=== PATIENT | female | born 1965 | race Caucasian/White ===

== ENCOUNTER 2023-05-09 21:19 | Observation (INO) ==
[2023-05-09 21:27] VITALS: TEMP 97.9
[2023-05-09] MEDS ORDERED: ACETAMINOPHEN 1,000 MG/100 ML VIAL IV STA (21:46)
[2023-05-09] MEDS ORDERED: SODIUM CHLORIDE 0.9% 1,000 ML IV ONE (21:46)
[2023-05-09] MEDS ORDERED: OPTIRAY 320 125ml IV ONE (21:54)
--- NOTE | 2023-05-09 21:55 | Emergency Department Note ---
Impression & Plan Aphasia, Hypertension, Headache, Rhinovirus ED Provider Note NAME: MIGDALIA DANGELO AGE: 57 SEX: F ARRIVES VIA: Walk-In INFORMANT: Patient ED PROVIDER(S): Hesham Napoles MD CHIEF COMPLAINT: Stroke symptoms, aphasia PLAN: Disposition: Admit MEDICAL DECISION MAKING: The patient is a pleasant 57-year-old woman with a past medical history of remote migraines which she reports resolved after starting blood pressure medicine, hypertension, hyperlipidemia, iron deficiency anemia who presents to the emergency department via walk-in accompanied by family with concern for problems with speech where she was saying the incorrect word without awareness of this which they noticed around 8 PM tonight. They report that she asked her son to turn off the computer but she said "turn off the [something unrelated]" and then was saying additional things that did not make sense. The patient reports she was not aware of the wrong words coming out. They report they last thought she was speaking normally at 1830 this evening when they were eating dinner. She is not on anticoagulation. She reports a dull headache throughout her entire head in the setting of having upper respiratory illness which the entire family had over the past couple of weeks but she has continued to have weakness, fatigue and headache. 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 On my evaluation the patient is no acute distress, afebrile blood pressure 130s/100s and heart in the 90s and vital signs otherwise stable. She appears clinically dry. On initial assessment she has no overt focal neurologic deficits and she is speaking fluently and moving all extremities equally. EKG without overt acute ischemia. Given the patient's symptoms which may have had a degree of waxing and waning and was within the extended TNK window stroke alert was activated. Case was discussed with [facility] telestroke neurology, Dr. Denney, who evaluated the patient he had the telestroke terminal/monitor following the patient's return from CT. CT of the head and CT of the head and neck were performed and did not show overt ICH or ischemic areas nor severe narrowing or occlusion of large vessel and subsequently were confirmed on final radiology report. WBC, H/H and platelets within normal limits. Chemistry without metabolic acidosis. Potassium 3.3 and electrolytes otherwise without significant abnormality. LFTs unremarkable. High-sensitivity troponin is undetectable. Respiratory viral panel/[employer] was positive for enterovirus/rhinovirus which likely reflects the patient's viral illness which was described by family and had gone through the household. Appreciate [facility] telestroke [place]. Denney's consultation and recommendations. Given the patient's symptoms had resolved and NIH score is 0 at this time no indication for TNK at this time. Agrees that symptoms may be related to TIA and recommends admission for further TIA workup including echo and MRI. Recommends initiating daily low-dose aspirin at this time. Given the patient has a history of question allergy/intolerance to aspirin where she reports nausea recommends deferring aspirin load at this time. Recommends MRI and permissive hypertension for now with goal BP less than 180/100. Additionally recommend atorvastatin 80 mg and obtain fasting lipid panel and A1c. Recommends echo with bubble study and consideration of ZIO heart monitor on discharge. Continue serial neurologic checks. Recommend local neurology follow-up. She will be available for any inpatient team questions or concerns. Of note, patient's blood pressure did demonstrate some trending improvement following IV hydration and IV APAP. Low-dose aspirin ordered per telestroke recommendations. Case was discussed with Dr. Lau, [facility] hospitalist, who evaluated the patient for admission. Further management per admitting team. Triage Nursing notes reviewed and agree them. Prior/external medical records reviewed Vital Signs: reviewed Differential diagnosis: Infection, dehydration, metabolic abnormality, hypo/hyperglycemia, electrolyte disturbance, anemia, hypoxia, cardiac sources, intracerebral event, toxicologic, neurologic, as well as other pathologies. ER treatment provided: See below. Diagnostics interpreted by me: ECG: Normal sinus rhythm, 93 bpm, no ectopy, no overt ST elevation or depression, QTc 417, QRS 70 Cardiac Monitoring: An order for continuous cardiac monitoring was placed and demonstrated Normal sinus rhythm, 93 bpm, no ectopy, Laboratory studies: See below Imaging studies: See below Consultation(s): Dr. Denney, [facility] telestroke neurology. Dr. [facility] hospital[facility]. HPI: The patient is a pleasant 57-year-old woman with a past medical history of remote migraines which she reports resolved after starting blood pressure medicine, hypertension, hyperlipidemia, iron deficiency anemia who presents to the emergency department via walk-in accompanied by family with concern for problems with speech where she was saying the incorrect word without awareness of this which they noticed around 8 PM tonight. They report that she asked her son to turn off the computer but she said "turn off the [something unrelated]" and then was saying additional things that did not make sense. The patient reports she was not aware of the wrong words coming out. They report they last thought she was speaking normally at 1830 this evening when they were eating dinner. She is not on anticoagulation. She reports a dull headache throughout her entire head in the setting of having upper respiratory illness which the entire family had over the past couple of weeks but she has continued to have weakness, fatigue and headache. 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 ROS: See above HPI for pertinent positives & negatives. A total of 10 systems reviewed and were otherwise negative. VITALS:See Below PHYSICAL EXAMINATION: GENERAL: Awake, alert, fatigued-appearing, in no distress, BMI 28.9. HENT: Normocephalic, atraumatic. Oropharynx with dry mucous membranes and otherwise unremarkable. EYES: Normal conjunctiva. Sclera non-icteric. EOMI. No nystamgus. PEARRL. NECK: Supple. No nuchal rigidity. FROM. No JVD. RESPIRATORY: Clear to auscultation. CARDIAC: Regular rate, normal rhythm. Extremities warm and well perfused. Pulses equal. ABDOMEN: Soft, non-distended. No tenderness to palpation. No rebound or guarding. No masses. RECTAL: Deferred. MUSCULOSKELETAL: Chest examination reveals no tenderness. The back is symmetrical on inspection without obvious abnormality. There is no CVA tenderness to palpation. No joint edema. LOWER EXTREMITIES: Calves are equal size bilaterally and non-tender. No edema. No discoloration. NEURO: No overt focal sensory or motor deficits noted. CNII-XII grossly intact. 5/5 strength and SILT x 4 extremities. Cerebellar function intact including [id number], alternating palms, [id number]. SKIN: No rash or jaundice noted. Hesham Napoles MD Past Med/Surg History Medical History Iron deficiency anemia Hypertension Dyslipidemia Surgical History S/P section x2 S/P appendectomy Family History Mother Breast cancer Father Colorectal cancer Prostate cancer Other Chronic liver disease Heart disease Hypertension Denies family history of Ovarian cancer Myocardial infarction Social History Smoking Status: Former smoker Second Hand Exposure: No; Do You Dip or Chew Tobacco: No; Hx Alcohol Use: No Hx Substance Use: No Preferred Language: [place] Communication Ability: Effective Visual Impairment: No Limitations Hearing Ability: Normal Booking Manager Required: No marital status: Current Living Situation: Spouse current occupational status: employed Feels Safe at Home: Yes Childhood Exposure to Second-Hand Smoke: No Dental Care, Regularly: Yes Seatbelt Use: always Sunscreen Use: Yes Assistive Devices: Glasses Allergies Allergies Allergy/AdvReac Type Severity Reaction Status Date / Time aspirin AdvReac Mild Nausea Verified 05/09/23 22:15 Home Meds Previous Rx's Medication Instructions Recorded amlodipine 5 mg tablet 5 mg PO DAILY #90 tabs 07/22/22 irbesartan 300 mg tablet 300 mg PO DAILY #90 tabs 08/02/22 polysaccharide iron complex 150 mg 300 mg (2 x 150 mg iron) PO DAILY 08/05/22 iron capsule (Ferrex) #180 caps Results & Data (ED) Vital Signs Vital Signs - 24 hr 05/09/23 21:21 05/09/23 21:21 05/09/23 21:23 Temperature 36.6 C Temperature Source Temporal Artery Scan Pulse Rate 104 H Pulse Rate [Apical] Pulse Rate from SpO2 Sensor Pulse Rhythm Regular Pulse Rhythm [Apical] Pulse Strength Normal Pulse Strength [Apical] Respiratory Rate 17 Respiratory Effort / Characteristics Non-Labored Non-Labored Spontaneous Respiratory Depth Normal Normal Respiratory Pattern Regular Blood Pressure 134/102 H Blood Pressure [Right Arm] Blood Pressure Mean 112 Blood Pressure Mean [Right Arm] Blood Pressure Position Sitting Blood Pressure Position [Right Arm] Pulse Oximetry 98 Oxygen Delivery Method Room Air Room Air Sepsis Recent Fever Within 48 Hours No Sepsis New/Unexplained Change in Mental Status N/A Sepsis Action Taken by Nursing No Action Required 05/09/23 21:38 05/09/23 21:38 05/09/23 21:45 Temperature Temperature Source Pulse Rate 94 H 96 H 90 Pulse Rate [Apical] Pulse Rate from SpO2 Sensor 96 H Pulse Rhythm Pulse Rhythm [Apical] Pulse Strength Pulse Strength [Apical] Respiratory Rate 12 18 Respiratory Effort / Characteristics Respiratory Depth Respiratory Pattern Blood Pressure Blood Pressure [Right Arm] Blood Pressure Mean Blood Pressure Mean [Right Arm] Blood Pressure Position Blood Pressure Position [Right Arm] Pulse Oximetry 98 Oxygen Delivery Method Sepsis Recent Fever Within 48 Hours Sepsis New/Unexplained Change in Mental Status Sepsis Action Taken by Nursing 05/09/23 22:03 05/09/23 22:15 05/09/23 22:18 Temperature Temperature Source Pulse Rate 97 H 92 H 89 Pulse Rate [Apical] Pulse Rate from SpO2 Sensor 97 H Pulse Rhythm Pulse Rhythm [Apical] Pulse Strength Pulse Strength [Apical] Respiratory Rate 17 22 15 Respiratory Effort / Characteristics Respiratory Depth Respiratory Pattern Blood Pressure 142/88 H 142/93 H Blood Pressure [Right Arm] Blood Pressure Mean 106 109 Blood Pressure Mean [Right Arm] Blood Pressure Position Blood Pressure Position [Right Arm] Pulse Oximetry 97 100 Oxygen Delivery Method Room Air Sepsis Recent Fever Within 48 Hours Sepsis New/Unexplained Change in Mental Status Sepsis Action Taken by Nursing 05/09/23 22:30 05/09/23 22:45 05/09/23 22:45 Temperature Temperature Source Pulse Rate 85 80 Pulse Rate [Apical] Pulse Rate from SpO2 Sensor 85 80 Pulse Rhythm Pulse Rhythm [Apical] Pulse Strength Pulse Strength [Apical] Respiratory Rate 15 14 Respiratory Effort / Characteristics Respiratory Depth Respiratory Pattern Blood Pressure 137/86 131/87 Blood Pressure [Right Arm] Blood Pressure Mean 103 96 Blood Pressure Mean [Right Arm] Blood Pressure Position Blood Pressure Position [Right Arm] Pulse Oximetry 98 99 Oxygen Delivery Method Sepsis Recent Fever Within 48 Hours Sepsis New/Unexplained Change in Mental Status Sepsis Action Taken by Nursing 05/09/23 23:36 Temperature Temperature Source Pulse Rate Pulse Rate [Apical] 76 Pulse Rate from SpO2 Sensor Pulse Rhythm Pulse Rhythm [Apical] Regular Pulse Strength Pulse Strength [Apical] Normal Respiratory Rate 16 Respiratory Effort / Characteristics Non-Labored Spontaneous Respiratory Depth Normal Respiratory Pattern Regular Blood Pressure Blood Pressure [Right Arm] 151/100 H Blood Pressure Mean Blood Pressure Mean [Right Arm] 117 Blood Pressure Position Blood Pressure Position [Right Arm] Lying Pulse Oximetry 99 Oxygen Delivery Method Room Air Sepsis Recent Fever Within 48 Hours Sepsis New/Unexplained Change in Mental Status Sepsis Action Taken by Nursing Laboratory Data Attestation: I reviewed the patient's lab results. 05/09/23 21:50 05/09/23 21:50 Lab Results 05/09/23 05/09/23 05/09/23 Range/Units 21:43 21:50 22:22 WBC 8.39 (4.8-10.8) K/ul RBC 5.37 (4.20-5.40) M/uL Hgb 15.4 (12.0-16.0) g/dl Hct 45.8 (37.0-47.0) % MCV 85.3 (80.0-100.0) fL MCH 28.7 (25.0-34.0) pg MCHC 33.6 (32.0-36.0) g/dL RDW Std Deviation 38.1 (36.4-46.3) fL RDW Coeff of Keith 12.3 (11.5-14.5) % Plt Count 342 (130-400) K/uL MPV 9.8 (9.4-12.4) fL Immature Gran % (Auto) 0.4 % Neut % (Auto) 77.4 % Lymph % (Auto) 12.8 % [place] % (Auto) 7.6 % Eos % (Auto) 1.2 % Baso % (Auto) 0.6 % Neut # (Auto) 6.50 (1.40-6.50) K/uL Lymph # (Auto) 1.07 L (1.20-3.40) K/uL Marathon # (Auto) 0.64 H (0.11-0.59) K/uL Eos # (Auto) 0.10 (0.00-0.50) K/uL Baso # (Auto) 0.05 (0.00-0.20) K/uL Immature Gran # (Auto) 0.03 (0.01-0.20) K/uL PT 10.2 (9.0-12.0) Seconds INR 0.9 (0.9-1.1) APTT 23 (21-31) Seconds PTT Ratio 0.8 Sodium 136 (136-145) mmol/L Potassium 3.3 L (3.5-5.1) mmol/L Chloride 100 (98-107) mmol/L Carbon Dioxide 25 (21-32) mmol/L Anion Gap 11 (3-11) BUN 17 (6-23) mg/dl Creatinine 0.86 (0.6-1.2) mg/dl Est Cr Clr Drug Dosing 74.9 ml/min Est GFR ( Amer) 86.9 ml/min Est GFR (Non-Af Amer) 75.0 ml/min BUN/Creatinine Ratio 19.8 (10-20) Glucose 109 H (70-99(Fasting)) mg/dl POC Glucose 106 H (70-99) mg/dl Calcium 9.2 (8.6-10.3) mg/dl Magnesium 2.2 (1.7-2.4) mg/dl Total Bilirubin 0.6 (0.2-1.0) mg/dl AST 14 (13-39) U/L ALT 8 (7-52) U/L Alkaline Phosphatase 120 H (34-104) U/L Troponin I High Sens < 2.3 (0-14) pg/ml Total Protein 7.8 (6.0-8.3) gm/dl Albumin 4.5 (3.4-5.0) gm/dl Globulin 3.3 (2.5-4.0) gm/dl Albumin/Globulin Ratio 1.4 (0.9-2) Adenovirus (PCR) Not Detected (NotDetected) B. pertussis DNA (PCR) Not Detected (NotDetected) B.parapertussis DNA PCR Not Detected (NotDetected) C. pneumoniae DNA (PCR) Not Detected (NotDetected) Coronavirus OC43 (PCR) Not Detected (NotDetected) Coronavirus HKU1 (PCR) Not Detected (NotDetected) Coronavirus 229E (PCR) Not Detected (NotDetected) SARS-CoV-2 (PCR) Not Detected (NotDetected) Coronavirus NL63 (PCR) Not Detected (NotDetected) Human Metapneumovir PCR Not Detected (NotDetected) Influenza Type A (PCR) Not Detected (NotDetected) Influenza Type B (PCR) Not Detected (NotDetected) M. pneumoniae (PCR) Not Detected (NotDetected) Parainfluenza 1 (PCR) Not Detected (NotDetected) Parainfluenza 2 (PCR) Not Detected (NotDetected) Parainfluenza 3 (PCR) Not Detected (NotDetected) Parainfluenza 4 (PCR) Not Detected (NotDetected) RSV (PCR) Not Detected (NotDetected) Entero/Rhino (PCR) DETECTED A* (NotDetected) Administered Medications Acetaminophen (Acetaminophen 325 Mg Tab) 650 mg PO Q4H PRN PRN Reason: pain/fever Stop: 06/08/23 23:58 Last Admin: 05/10/23 01:56 Dose: 650 mg Documented By: NADIA Discontinued Medications Aspirin (Aspirin 81 Mg Ectab) 81 mg PO NOW STA Stop: 05/09/23 22:53 Last Admin: 05/09/23 23:33 Dose: 81 mg Documented By: NADIA Gadobutrol (Gadobutrol 65ml Vial) 7.5 ml IV ONCE ONE Stop: 05/10/23 01:26 Last Admin: 05/10/23 01:26 Dose: 7.5 ml Documented By: BEBETO Sodium Chloride (Nss) 1,000 mls @ 999 mls/hr IV .Q1H1M ONE Stop: 05/09/23 22:46 Last Infusion: 05/09/23 23:10 Dose: Infused Documented By: Admin: 05/09/23 22:04 Dose: 999 mls/hr Documented By: WOLF Acetaminophen (Ofirmev) 1,000 mg in 100 mls @ 400 mls/hr IV NOW STA Stop: 05/09/23 22:00 Last Infusion: 05/09/23 22:26 Dose: Infused Documented By: Admin: 05/09/23 22:04 Dose: 400 mls/hr Documented By: WOLF Ioversol (Optiray 320 125ml) 118 ml IV ONCE ONE Stop: 05/09/23 21:55 Last Admin: 05/09/23 21:54 Dose: 118 ml Documented By: RACHAEL Potassium Chloride (Potassium Chloride Crtab 20 Meq Tabcr) 60 meq PO NOW STA Stop: 05/10/23 00:00 Last Admin: 05/10/23 00:51 Dose: 60 meq Documented By: NADIA Imaging Data Radiologist's Impression: Head CT 05/09/23 21:46 CR Exam(s): CT HEAD Without Contrast EXAM: CT Head Without Intravenous Contrast CLINICAL HISTORY: Reason for exam: neuro deficit, acute stroke suspected. TECHNIQUE: Axial computed tomography images of the head/brain without intravenous contrast. CTDI is 46.52 mGy and DLP is 677.48 mGy-cm. Automated exposure control was utilized for the study. A dose lowering technique was utilized adhering to the principles of ALARA. Mild motion artifact. COMPARISON: None. FINDINGS: Brain: No mass effect or acute infarct. No acute hemorrhage. Mild atrophy and chronic white matter disease. No other abnormal density in the brain parenchyma. Ventricles: No hydrocephalus or midline shift. Bones/joints: No acute bony lesion. Soft tissues: No scalp hematoma. Sinuses: Clear. Mastoid air cells: No mastoid effusion. IMPRESSION: 1. Mild age-related findings. 2. No acute infarct, bleed, or acute intracranial abnormality. Communications: Call Doctor Stroke Electronically signed by: Sivan Beck M.D. 05/09/23 22:34 PM Head CTA 05/09/23 21:46 CR Exam(s): CTA HEAD With Contrast IV Amt: 118 ml optiray 320 EXAM: CT Angiography Head With Intravenous Contrast CLINICAL HISTORY: Reason for exam: neuro deficit, acute stroke suspected. TECHNIQUE: Axial computed tomographic angiography images of the head with intravenous contrast. CTDI is 72.87 mGy and DLP is 1114.86 mGy-cm. Automated exposure control was utilized for the study. A dose lowering technique was utilized adhering to the principles of ALARA. 118 ML Optiray 320 given IV. MIP reconstructed images were created and reviewed. Moderate venous enhancement and mild motion artifact, limits detail. CONTRAST: Patient received 118 ml optiray 320 of IV contrast COMPARISON: None. FINDINGS: Right internal carotid artery: Patent. Right anterior cerebral artery: Patent. Right middle cerebral artery: Patent. Right posterior cerebral artery: Patent. Right vertebral artery: Patent. Left internal carotid artery: Patent. Left anterior cerebral artery: Patent. Left middle cerebral artery: Patent. Left posterior cerebral artery: Patent. Left vertebral artery: Patent. Basilar artery: Patent. Ectatic. Other: Mild atherosclerosis bilateral cavernous ICA, without significant stenosis. IMPRESSION: 1. No aneurysm or large vessel occlusion. Communications: Call Doctor Stroke Electronically signed by: Sivan Beck M.D. 05/09/23 22:34 PM Neck CTA 05/09/23 21:46 CR Exam(s): CTA NECK With Contrast IV Amt: 118 ml optiray 320 EXAM: CT Angiography Neck With Intravenous Contrast CLINICAL HISTORY: Reason for exam: neuro deficit, acute stroke suspected. TECHNIQUE: Routine carotid CT angiography protocol was performed with intravenous contrast. NASCET criteria using the distal ICAs for comparison were used for evaluation of stenoses. CTDI is 72.87 mGy and DLP is 1114.86 mGy-cm. Automated exposure control was utilized for the study. A dose lowering technique was utilized adhering to the principles of ALARA. MIP reconstructed images were created and reviewed. CONTRAST: Patient received 118 ml optiray 320 of IV contrast COMPARISON: None. FINDINGS: Right common carotid artery: Patent. Right internal carotid artery: Patent. Right vertebral artery: Patent. Left common carotid artery: Patent. Left internal carotid artery: Patent. Left vertebral artery: Patent. Codominant. Other: No significant atherosclerosis of the aorta or carotid bifurcations, and no significant stenosis. IMPRESSION: 1. No dissection, occlusion, or significant stenosis. CAROTID STENOSIS REFERENCE USING NASCET CRITERIA: % ICA stenosis = (1 - narrowest ICA diameter/diameter of distal cervical ICA) x 100. Mild - <50% stenosis. Moderate - 50-69% stenosis. Severe - 70-94% stenosis. Near occlusion - 95-99% stenosis. Occluded - 100% stenosis. Communications: Call Doctor Stroke Electronically signed by: Sivan Beck M.D. 05/09/23 22:33 PM Discharge Plan Visit Data Chief Complaint: Confusion Stated Complaint: NAUSEA, SAYING WEIRD THINGS/CONFUSION, DEHYDRATED ED Provider: Hesham Napoles Discharge Problem: Aphasia, Hypertension, Headache, Rhinovirus Discharge Instructions Interventions: ED Discharge Assessment Last Done: 05/09/23 23:59 Discharge Problem: Hypertension Qualifiers: Hypertension type: unspecified Qualified Code(s): I10 - Essential (primary) hypertension Headache Qualifiers: Headache type: unspecified Headache chronicity pattern: acute headache I ntractability: intractable Qualified Code(s): R51.9 - Headache, unspecified
[2023-05-09 22:09] LABS: Basophils # (auto) 0.05 K/uL (0.00-0.20); Basophils % (auto) 0.6 %; Eosinophils % (auto) 1.2 %; Hematocrit (blood only) 45.8 % (37.0-47.0); Hemoglobin 15.4 g/dl (12.0-16.0); Immature Granulocytes # (auto) 0.03 K/uL (0.01-0.20); Immature Granulocytes % (auto) 0.4 %; Lymphocytes # (auto) 1.07 K/uL (1.20-3.40); Lymphocytes % (auto) 12.8 %; Mean Corpuscular Hemoglobin 28.7 pg (25.0-34.0); Mean Corpuscular Hgb Conc 33.6 g/dL (32.0-36.0); Mean Corpuscular Volume 85.3 fL (80.0-100.0); Mean Platelet Volume 9.8 fL (9.4-12.4); Monocytes # (auto) 0.64 K/uL (0.11-0.59); Monocytes % (auto) 7.6 %; Neutrophils % (auto) 77.4 %; Platelet Count 342 K/uL (130-400); RDW Coefficient of Variation 12.3 % (11.5-14.5); RDW Standard Deviation 38.1 fL (36.4-46.3); Red Blood Count 5.37 M/uL (4.20-5.40); White Blood Count 8.39 K/ul (4.8-10.8)
[2023-05-09 22:22] LABS: Alanine Aminotransferase 8 U/L (7-52); Albumin Globulin Ratio 1.4 (0.9-2); Albumin Level 4.5 gm/dl (3.4-5.0); Alkaline Phosphatase 120 U/L (34-104); Anion Gap 11 (3-11); Aspartate Aminotransferase 14 U/L (13-39); BUN Creatinine Ratio 19.8 (10-20); Bilirubin,Total 0.6 mg/dl (0.2-1.0); Blood Urea Nitrogen 17 mg/dl (6-23); Calcium 9.2 mg/dl (8.6-10.3); Carbon Dioxide 25 mmol/L (21-32); Chloride 100 mmol/L (98-107); Creatinine Clr Calc Pharmacy 74.9 ml/min; Est GFR (African American) 86.9 ml/min; Globulin 3.3 gm/dl (2.5-4.0); Glucose 109 mg/dl (70-99(Fasting)); Magnesium 2.2 mg/dl (1.7-2.4); Potassium 3.3 mmol/L (3.5-5.1); Sodium 136 mmol/L (136-145); Total Protein 7.8 gm/dl (6.0-8.3)
[2023-05-09 22:29] LABS: Troponin I High Sensitivity < 2.3 pg/ml (0-14)
[2023-05-09 22:30] LABS: INR 0.9 (0.9-1.1); Partial Thromboplastin Ratio 0.8; Partial Thromboplastin Time 23 Seconds (21-31); Prothrombin Time 10.2 Seconds (9.0-12.0)
--- NOTE | 2023-05-09 22:34 | CT Scan Report ---
Exam(s): CTA HEAD With Contrast IV Amt: 118 ml optiray 320 EXAM: CT Angiography Head With Intravenous Contrast CLINICAL HISTORY: Reason for exam: neuro deficit, acute stroke suspected. TECHNIQUE: Axial computed tomographic angiography images of the head with intravenous contrast. CTDI is 72.87 mGy and DLP is 1114.86 mGy-cm. Automated exposure control was utilized for the study. A dose lowering technique was utilized adhering to the principles of ALARA. 118 ML Optiray 320 given IV. MIP reconstructed images were created and reviewed. Moderate venous enhancement and mild motion artifact, limits detail. CONTRAST: Patient received 118 ml optiray 320 of IV contrast COMPARISON: None. FINDINGS: Right internal carotid artery: Patent. Right anterior cerebral artery: Patent. Right middle cerebral artery: Patent. Right posterior cerebral artery: Patent. Right vertebral artery: Patent. Left internal carotid artery: Patent. Left anterior cerebral artery: Patent. Left middle cerebral artery: Patent. Left posterior cerebral artery: Patent. Left vertebral artery: Patent. Basilar artery: Patent. Ectatic. Other: Mild atherosclerosis bilateral cavernous ICA, without significant stenosis. IMPRESSION: 1. No aneurysm or large vessel occlusion. Communications: Call Doctor Stroke Electronically signed by: Sivan Beck M.D. 05/09/23 22:34 PM
--- NOTE | 2023-05-09 22:34 | CT Scan Report ---
Exam(s): CT HEAD Without Contrast EXAM: CT Head Without Intravenous Contrast CLINICAL HISTORY: Reason for exam: neuro deficit, acute stroke suspected. TECHNIQUE: Axial computed tomography images of the head/brain without intravenous contrast. CTDI is 46.52 mGy and DLP is 677.48 mGy-cm. Automated exposure control was utilized for the study. A dose lowering technique was utilized adhering to the principles of ALARA. Mild motion artifact. COMPARISON: None. FINDINGS: Brain: No mass effect or acute infarct. No acute hemorrhage. Mild atrophy and chronic white matter disease. No other abnormal density in the brain parenchyma. Ventricles: No hydrocephalus or midline shift. Bones/joints: No acute bony lesion. Soft tissues: No scalp hematoma. Sinuses: Clear. Mastoid air cells: No mastoid effusion. IMPRESSION: 1. Mild age-related findings. 2. No acute infarct, bleed, or acute intracranial abnormality. Communications: Call Doctor Stroke Electronically signed by: Sivan Beck M.D. 05/09/23 22:34 PM
--- NOTE | 2023-05-09 22:34 | CT Scan Report ---
Exam(s): CTA NECK With Contrast IV Amt: 118 ml optiray 320 EXAM: CT Angiography Neck With Intravenous Contrast CLINICAL HISTORY: Reason for exam: neuro deficit, acute stroke suspected. TECHNIQUE: Routine carotid CT angiography protocol was performed with intravenous contrast. NASCET criteria using the distal ICAs for comparison were used for evaluation of stenoses. CTDI is 72.87 mGy and DLP is 1114.86 mGy-cm. Automated exposure control was utilized for the study. A dose lowering technique was utilized adhering to the principles of ALARA. MIP reconstructed images were created and reviewed. CONTRAST: Patient received 118 ml optiray 320 of IV contrast COMPARISON: None. FINDINGS: Right common carotid artery: Patent. Right internal carotid artery: Patent. Right vertebral artery: Patent. Left common carotid artery: Patent. Left internal carotid artery: Patent. Left vertebral artery: Patent. Codominant. Other: No significant atherosclerosis of the aorta or carotid bifurcations, and no significant stenosis. IMPRESSION: 1. No dissection, occlusion, or significant stenosis. CAROTID STENOSIS REFERENCE USING NASCET CRITERIA: % ICA stenosis = (1 - narrowest ICA diameter/diameter of distal cervical ICA) x 100. Mild - <50% stenosis. Moderate - 50-69% stenosis. Severe - 70-94% stenosis. Near occlusion - 95-99% stenosis. Occluded - 100% stenosis. Communications: Call Doctor Stroke Electronically signed by: Sivan Beck M.D. 05/09/23 22:33 PM
[2023-05-09] MEDS ORDERED: ASPIRIN 81 MG ECTAB PO STA (22:52)
[2023-05-09 23:26] LABS: Adenovirus PCR Not Detected (NotDetected); Bordetella parapertussis PCR Not Detected (NotDetected); Bordetella pertussis PCR Not Detected (NotDetected); Chlamydia pneumoniae PCR Not Detected (NotDetected); Coronavirus 229E PCR Not Detected (NotDetected); Coronavirus CoV-2 (COVID19)PCR Not Detected (NotDetected); Coronavirus HKU1 PCR Not Detected (NotDetected); Coronavirus NL63 PCR Not Detected (NotDetected); Coronavirus OC43PCR Not Detected (NotDetected); Human Metapneumovirus PCR Not Detected (NotDetected); Influenza A PCR Not Detected (NotDetected); Influenza B PCR Not Detected (NotDetected); Mycoplasma pneumoniae PCR Not Detected (NotDetected); Parainfluenza Virus 1 PCR Not Detected (NotDetected); Parainfluenza Virus 2 PCR Not Detected (NotDetected); Parainfluenza Virus 3 PCR Not Detected (NotDetected); Parainfluenza Virus 4 PCR Not Detected (NotDetected); Respiratory Syncytial VirusPCR Not Detected (NotDetected)
[2023-05-09 23:41] LABS: Rhinovirus/Enterovirus PCR DETECTED (NotDetected)
--- NOTE | 2023-05-09 23:41 | History & Physical Report ---
Date of Service May 09, 2023 Assessment & Plan (1) Aphasia: Plan: 57yo female presenting with acute onset aphasia - word-finding difficulty as well as improper word use. Concern for possible TIA/CVA. Patient with hypertension, HLP, recent illness -Observation to medical with telemetry -Dysphagia screening as needed -NIHSS and Neuro checks per protocol -Check lipid panel, HgbA1C -Check MRI brain -Check 2D echo with bubble study -Initiate Atorvastatin 40mg po daily -Initiate ASA 81mg po daily and Plavix 75mg po daily for now -Hold antihypertensives - Amlodipine and Irbesartan - to allow for permissive HTN for now -Tylenol PRN headache -PT/OT evaluation appreciated (2) Hypertension: Plan: Chronic. Mildly elevated -Holding home antihypertensives for now -Monitor BP (3) Dyslipidemia: Plan: Chronic. Patient not currently on any medication -Initiate Atorvastatin 40mg po daily (4) Iron deficiency anemia: Plan: Chronic. Stable H/H. -Hold PO iron while inpatient History of Present Illness Chief Complaint: aphasia Primary Care Provider: SANDRO Singletary Aidee Blanco is a 57yo female with history of HTN, HLP presenting with episode of aphasia. Patient has been ill for the last week with diarrhea, ,weakness, fatigue, headache and decreased oral intake. This evening around 20:00 she had an episode of expressive aphasia. She was asking her son to turn off the computer and was using inappropriate words. She denies visual changes, focal numbness/tingling, dizziness or weakness. No neck pain or stiffness. She reports that her symptoms are improving but is still having some difficulty with word finding. In the ER she is hypertensive, 15/100, otherwise stable ER Course: Tylenol ASA NSS Allergies Allergy/AdvReac Type Severity Reaction Status Date / Time aspirin AdvReac Mild Nausea Verified 05/09/23 22:15 Home Medications Medication Instructions Recorded Confirmed Type amlodipine 5 mg tablet 5 mg PO DAILY #90 tabs 07/22/22 05/09/23 Rx irbesartan 300 mg tablet 300 mg PO DAILY #90 tabs 08/02/22 05/09/23 Rx polysaccharide iron complex 150 mg 300 mg (2 x 150 mg iron) PO DAILY 08/05/22 05/09/23 Rx iron capsule (Ferrex) #180 caps Past Med/Surg History Medical History Dyslipidemia Surgical History S/P section x2 S/P appendectomy Family History Mother Breast cancer Father Colorectal cancer Prostate cancer Other Chronic liver disease Heart disease Hypertension Denies family history of Ovarian cancer Myocardial infarction Social History Smoking Status: Former smoker Second Hand Exposure: No; Do You Dip or Chew Tobacco: No; Hx Alcohol Use: No Hx Substance Use: No Preferred Language: Turkish Communication Ability: Effective Visual Impairment: No Limitations Hearing Ability: Normal Assistant Research Scientist Required: No marital status: Current Living Situation: Spouse current occupational status: employed Feels Safe at Home: Yes Childhood Exposure to Second-Hand Smoke: No Dental Care, Regularly: Yes Seatbelt Use: always Sunscreen Use: Yes Assistive Devices: Glasses Review of Systems Review of Systems: All systems reviewed & are unremarkable except as noted in HPI & below Physical Exam Physical Exam: General: patient resting comfortably, NAD, non-toxic in appearance, AA&O x 4 Skin: warm, dry, intact, no rashes or lesions HEENT: NC/AT, PERRL, EOMI, anicteric sclera, conjunctiva without injection, external ear normal to inspection and nontender, nares patent, moist mucus membranes, dentition intact, no oropharyngeal lesions, neck supple, trachea midline, no LAD, no thyromegaly, no JVD Heart: +S1/S2, regular, no m/r/g Lungs: equal air entry bilaterally, no rales/rhonchi/wheezes Abd: +BS, soft, NT/ND, no masses/organomegaly/ascites Ext: warm, 2+ pulses in UE/LE bilaterally, no clubbing/cyanosis or edema Neuro: nonfocal, patient AA&O x 4, speech slow with some word-finding difficulty and improper word use (dymptoms instead of symptoms), no facial droop, moving all extremities on command with equal strength 5/5 Results & Data Results & Data Vital Signs (Past 12 Hours) Vital Signs Temp Pulse Resp BP Pulse Ox O2 Del Method 05/09/23 22:45 131/87 05/09/23 22:45 80 14 99 05/09/23 22:30 85 15 137/86 98 05/09/23 22:18 89 15 142/93 H 100 Room Air 05/09/23 22:15 92 H 22 05/09/23 22:03 97 H 17 142/88 H 97 05/09/23 21:45 90 18 05/09/23 21:38 96 H 12 98 05/09/23 21:38 94 H 05/09/23 21:23 36.6 C 104 H 17 134/102 H 98 Room Air 05/09/23 21:21 Room Air Laboratory Results Laboratory Results WBC 8.39 K/ul (4.8-10.8) 05/09/23 21:50 RBC 5.37 M/uL (4.20-5.40) 05/09/23 21:50 Hgb 15.4 g/dl (12.0-16.0) 05/09/23 21:50 Hct 45.8 % (37.0-47.0) 05/09/23 21:50 MCV 85.3 fL (80.0-100.0) 05/09/23 21:50 MCH 28.7 pg (25.0-34.0) 05/09/23 21:50 MCHC 33.6 g/dL (32.0-36.0) 05/09/23 21:50 RDW Std Deviation 38.1 fL (36.4-46.3) 05/09/23 21:50 RDW Coeff of Keith 12.3 % (11.5-14.5) 05/09/23 21:50 Plt Count 342 K/uL (130-400) 05/09/23 21:50 MPV 9.8 fL (9.4-12.4) 05/09/23 21:50 Immature Gran % (Auto) 0.4 % 05/09/23 21:50 Neut % (Auto) 77.4 % 05/09/23 21:50 Lymph % (Auto) 12.8 % 05/09/23 21:50 Ashley % (Auto) 7.6 % 05/09/23 21:50 Eos % (Auto) 1.2 % 05/09/23 21:50 Baso % (Auto) 0.6 % 05/09/23 21:50 Neut # (Auto) 6.50 K/uL (1.40-6.50) 05/09/23 21:50 Lymph # (Auto) 1.07 K/uL (1.20-3.40) L 05/09/23 21:50 Ashley # (Auto) 0.64 K/uL (0.11-0.59) H 05/09/23 21:50 Eos # (Auto) 0.10 K/uL (0.00-0.50) 05/09/23 21:50 Baso # (Auto) 0.05 K/uL (0.00-0.20) 05/09/23 21:50 Immature Gran # (Auto) 0.03 K/uL (0.01-0.20) 05/09/23 21:50 PT 10.2 Seconds (9.0-12.0) 05/09/23 21:50 INR 0.9 (0.9-1.1) 05/09/23 21:50 APTT 23 Seconds (21-31) 05/09/23 21:50 PTT Ratio 0.8 05/09/23 21:50 Sodium 136 mmol/L (136-145) 05/09/23 21:50 Potassium 3.3 mmol/L (3.5-5.1) L 05/09/23 21:50 Chloride 100 mmol/L (98-107) 05/09/23 21:50 Carbon Dioxide 25 mmol/L (21-32) 05/09/23 21:50 Anion Gap 11 (3-11) 05/09/23 21:50 BUN 17 mg/dl (6-23) 05/09/23 21:50 Creatinine 0.86 mg/dl (0.6-1.2) 05/09/23 21:50 Est Cr Clr Drug Dosing 74.9 ml/min 05/09/23 21:50 Est GFR ( Amer) 86.9 ml/min 05/09/23 21:50 Est GFR (Non-Af Amer) 75.0 ml/min 05/09/23 21:50 BUN/Creatinine Ratio 19.8 (10-20) 05/09/23 21:50 Glucose 109 mg/dl (70-99(Fasting)) H 05/09/23 21:50 POC Glucose 106 mg/dl (70-99) H 05/09/23 21:43 Calcium 9.2 mg/dl (8.6-10.3) 05/09/23 21:50 Magnesium 2.2 mg/dl (1.7-2.4) 05/09/23 21:50 Total Bilirubin 0.6 mg/dl (0.2-1.0) 05/09/23 21:50 AST 14 U/L (13-39) 05/09/23 21:50 ALT 8 U/L (7-52) 05/09/23 21:50 Alkaline Phosphatase 120 U/L (34-104) H 05/09/23 21:50 Troponin I High Sens < 2.3 pg/ml (0-14) 05/09/23 21:50 Total Protein 7.8 gm/dl (6.0-8.3) 05/09/23 21:50 Albumin 4.5 gm/dl (3.4-5.0) 05/09/23 21:50 Globulin 3.3 gm/dl (2.5-4.0) 05/09/23 21:50 Albumin/Globulin Ratio 1.4 (0.9-2) 05/09/23 21:50 Adenovirus (PCR) Not Detected (NotDetected) 05/09/23 22:22 B. pertussis DNA (PCR) Not Detected (NotDetected) 05/09/23 22:22 B.parapertussis DNA PCR Not Detected (NotDetected) 05/09/23 22:22 C. pneumoniae DNA (PCR) Not Detected (NotDetected) 05/09/23 22:22 Coronavirus OC43 (PCR) Not Detected (NotDetected) 05/09/23 22:22 Coronavirus HKU1 (PCR) Not Detected (NotDetected) 05/09/23 22:22 Coronavirus 229E (PCR) Not Detected (NotDetected) 05/09/23 22:22 SARS-CoV-2 (PCR) Not Detected (NotDetected) 05/09/23 22:22 Coronavirus NL63 (PCR) Not Detected (NotDetected) 05/09/23 22:22 Human Metapneumovir PCR Not Detected (NotDetected) 05/09/23 22:22 Influenza Type A (PCR) Not Detected (NotDetected) 05/09/23 22:22 Influenza Type B (PCR) Not Detected (NotDetected) 05/09/23 22:22 M. pneumoniae (PCR) Not Detected (NotDetected) 05/09/23 22:22 Parainfluenza 1 (PCR) Not Detected (NotDetected) 05/09/23 22:22 Parainfluenza 2 (PCR) Not Detected (NotDetected) 05/09/23 22:22 Parainfluenza 3 (PCR) Not Detected (NotDetected) 05/09/23 22:22 Parainfluenza 4 (PCR) Not Detected (NotDetected) 05/09/23 22:22 RSV (PCR) Not Detected (NotDetected) 05/09/23 22:22 Entero/Rhino (PCR) DETECTED (NotDetected) A* 05/09/23 22:[address] 05/09/23 21:46 CR Exam(s): CT HEAD Without Contrast EXAM: CT Head Without Intravenous Contrast CLINICAL HISTORY: Reason for exam: neuro deficit, acute stroke suspected. TECHNIQUE: Axial computed tomography images of the head/brain without intravenous contrast. CTDI is 46.52 mGy and DLP is 677.48 mGy-cm. Automated exposure control was utilized for the study. A dose lowering technique was utilized adhering to the principles of ALARA. Mild motion artifact. COMPARISON: None. FINDINGS: Brain: No mass effect or acute infarct. No acute hemorrhage. Mild atrophy and chronic white matter disease. No other abnormal density in the brain parenchyma. Ventricles: No hydrocephalus or midline shift. Bones/joints: No acute bony lesion. Soft tissues: No scalp hematoma. Sinuses: Clear. Mastoid air cells: No mastoid effusion. IMPRESSION: 1. Mild age-related findings. 2. No acute infarct, bleed, or acute intracranial abnormality. Communications: Call Doctor Stroke Electronically signed by: Sivan Bekc M.D. 05/09/23 22:34 PM Head CTA 05/09/23 21:46 CR Exam(s): CTA HEAD With Contrast IV Amt: 118 ml optiray 320 EXAM: CT Angiography Head With Intravenous Contrast CLINICAL HISTORY: Reason for exam: neuro deficit, acute stroke suspected. TECHNIQUE: Axial computed tomographic angiography images of the head with intravenous contrast. CTDI is 72.87 mGy and DLP is 1114.86 mGy-cm. Automated exposure control was utilized for the study. A dose lowering technique was utilized adhering to the principles of ALARA. 118 ML Optiray 320 given IV. MIP reconstructed images were created and reviewed. Moderate venous enhancement and mild motion artifact, limits detail. CONTRAST: Patient received 118 ml optiray 320 of IV contrast COMPARISON: None. FINDINGS: Right internal carotid artery: Patent. Right anterior cerebral artery: Patent. Right middle cerebral artery: Patent. Right posterior cerebral artery: Patent. Right vertebral artery: Patent. Left internal carotid artery: Patent. Left anterior cerebral artery: Patent. Left middle cerebral artery: Patent. Left posterior cerebral artery: Patent. Left vertebral artery: Patent. Basilar artery: Patent. Ectatic. Other: Mild atherosclerosis bilateral cavernous ICA, without significant stenosis. IMPRESSION: 1. No aneurysm or large vessel occlusion. Communications: Call Doctor Stroke Electronically signed by: Sivan Beck M.D. 05/09/23 22:34 PM Neck CTA 05/09/23 21:46 CR Exam(s): CTA NECK With Contrast IV Amt: 118 ml optiray 320 EXAM: CT Angiography Neck With Intravenous Contrast CLINICAL HISTORY: Reason for exam: neuro deficit, acute stroke suspected. TECHNIQUE: Routine carotid CT angiography protocol was performed with intravenous contrast. NASCET criteria using the distal ICAs for comparison were used for evaluation of stenoses. CTDI is 72.87 mGy and DLP is 1114.86 mGy-cm. Automated exposure control was utilized for the study. A dose lowering technique was utilized adhering to the principles of ALARA. MIP reconstructed images were created and reviewed. CONTRAST: Patient received 118 ml optiray 320 of IV contrast COMPARISON: None. FINDINGS: Right common carotid artery: Patent. Right internal carotid artery: Patent. Right vertebral artery: Patent. Left common carotid artery: Patent. Left internal carotid artery: Patent. Left vertebral artery: Patent. Codominant. Other: No significant atherosclerosis of the aorta or carotid bifurcations, and no significant stenosis. IMPRESSION: 1. No dissection, occlusion, or significant stenosis. CAROTID STENOSIS REFERENCE USING NASCET CRITERIA: % ICA stenosis = (1 - narrowest ICA diameter/diameter of distal cervical ICA) x 100. Mild - <50% stenosis. Moderate - 50-69% stenosis. Severe - 70-94% stenosis. Near occlusion - 95-99% stenosis. Occluded - 100% stenosis. Communications: Call Doctor Stroke Electronically signed by: Sivan Beck M.D. 05/09/23 22:33 PM PG Care Time/CCT Total # of Minutes Spent Total Time Spent with Patient: Total time spent is greater than 50% in coordination of care (as documented) at patient's floor/unit and/or counseling patient: Coding Level of Care Code 37169 INT INP/OBS CARE 2/55MIN Diagnoses Aphasia R47.01 Hypertension I10 Dyslipidemia E78.5 Iron deficiency anemia D50.9
[2023-05-09] MEDS ORDERED: ONDANSETRON INJ 2 MG/ML 2 ML VIAL IV PRN (23:59)
[2023-05-09] MEDS ORDERED: POTASSIUM CHLORIDE CRTAB 20 MEQ TABCR PO STA (23:59)
[2023-05-09] MEDS ORDERED: PHARMACIST DISCHARGE MED REC CONSULT PRN (23:59)
[2023-05-10] MEDS ORDERED: GADOBUTROL 65ML VIAL IV ONE (01:25)
[2023-05-10] MEDS: ACETAMINOPHEN 325 MG TAB PO PRN ×2 (01:56→08:24)
--- NOTE | 2023-05-10 02:14 | Magnetic Resonance Report ---
Exam(s): MRI HEAD W/WO Contrast IV Amt: 7.5cc gadavist EXAM: MR Head Without and With Intravenous Contrast CLINICAL HISTORY: Reason for exam: possible CVA. TECHNIQUE: Magnetic resonance images of the head/brain without and with intravenous contrast in multiple planes. CONTRAST: Patient received 7.5cc gadavist of IV contrast COMPARISON: CT head 05/09/2023. FINDINGS: Brain: Age-appropriate central and peripheral atrophy. Minimal supratentorial periventricular and subcortical white matter hyperintensities on FLAIR and T2-weighted images. No hemorrhage. No acute infarct. Ventricles: No midline shift. No ventriculomegaly. Bones/joints: Unremarkable. No acute fracture. Sinuses: Left maxillary sinus air-fluid level and mucosal thickening.. Mastoid air cells: Unremarkable as visualized. No mastoid effusion. Orbits: Unremarkable as visualized. IMPRESSION: 1. No acute stroke or hemorrhage. 2. Minimal nonspecific white matter changes most commonly seen with small vessel disease. 3. Left maxillary sinus disease. Electronically signed by: Dipak Zhu M.D. 05/10/23 02:13 AM
[2023-05-10 05:13] LABS: BUN Creatinine Ratio 15.1 (10-20); Calcium 8.4 mg/dl (8.6-10.3); Creatinine Clr Calc Pharmacy 79.3 ml/min; Est GFR (Non-African American) 91.4 ml/min; Potassium 3.5 mmol/L (3.5-5.1)
[2023-05-10 05:19] LABS: Basophils # (auto) 0.03 K/uL (0.00-0.20); Basophils % (auto) 0.4 %; Eosinophils # (auto) 0.02 K/uL (0.00-0.50); Eosinophils % (auto) 0.2 %; Hematocrit (blood only) 39.7 % (37.0-47.0); Hemoglobin 13.4 g/dl (12.0-16.0); Immature Granulocytes # (auto) 0.04 K/uL (0.01-0.20); Immature Granulocytes % (auto) 0.5 %; Lymphocytes # (auto) 1.16 K/uL (1.20-3.40); Lymphocytes % (auto) 13.6 %; Mean Corpuscular Hemoglobin 28.7 pg (25.0-34.0); Mean Corpuscular Hgb Conc 33.8 g/dL (32.0-36.0); Mean Platelet Volume 10.4 fL (9.4-12.4); Monocytes # (auto) 0.59 K/uL (0.11-0.59); Monocytes % (auto) 6.9 %; Neutrophils # (auto) 6.69 K/uL (1.40-6.50); Neutrophils % (auto) 78.4 %; Platelet Count 326 K/uL (130-400); RDW Coefficient of Variation 12.3 % (11.5-14.5); RDW Standard Deviation 37.6 fL (36.4-46.3); Red Blood Count 4.67 M/uL (4.20-5.40); White Blood Count 8.53 K/ul (4.8-10.8)
[2023-05-10 07:03] LABS: Estimated Average Glucose 103 mg/dl; Hemoglobin A1C 5.2 % (4.5-5.6)
[2023-05-10] MEDS ORDERED: ATORVASTATIN 40 MG TAB PO SCH (09:00)
[2023-05-10] MEDS ORDERED: ASPIRIN 81 MG ECTAB PO SCH (09:00)
[2023-05-10] MEDS ORDERED: CLOPIDOGREL BISULFATE 75 MG TAB PO SCH (09:00)
--- NOTE | 2023-05-10 09:42 | Hospitalist Progress Note ---
Date of Service May 10, 2023 Assessment & Plan (1) Aphasia: (2) Hypertension: (3) Dyslipidemia: (4) Iron deficiency anemia: Plan 57 yo female PMH: hypertension and hyperlipidemia presenting with acute onset aphasia - word-finding difficulty as well as improper word use. Concern for possible TIA/CVA. Aphasia/TIA -Acute aphasia episode that resolved after an hour -NIHSS and Neuro checks per protocol -Lipid: cholesterol 180, LDL: 104 -MRI: No acute stroke or hemorrhage. -echo: -Initiate Atorvastatin 40mg po daily -Initiate ASA 81mg po daily and Plavix 75mg po daily for now -Hold antihypertensives - Amlodipine and Irbesartan - to allow for permissive HTN for now -Tylenol PRN headache -PT/OT evaluation appreciated Hypertension: Chronic. Mildly elevated -Holding home antihypertensives for now -Monitor BP Entero/Rhinovirus - Positive PCR -Recent illness, sporadic cough -No fever Dyslipidemia: Chronic. Patient not currently on any medication -Initiate Atorvastatin 40mg po daily Iron deficiency anemia: Chronic. Stable H/H. -Hold PO iron while inpatient Admission and Anticipated Discharge Date Admission Date: May 09, 2023 Results & Data Results & Data Vital Signs (Past 12 Hours) Vital Signs Pulse Pulse Resp BP BP Pulse Ox O2 Del Method 05/10/23 07:18 80 05/10/23 06:12 80 16 149/109 H 98 Room Air 05/10/23 06:00 86 16 154/119 H 98 Room Air 05/10/23 05:45 87 20 98 05/10/23 05:30 65 17 97 05/10/23 05:15 79 20 96 05/10/23 05:00 80 22 98 05/10/23 05:00 150/106 H 05/10/23 04:45 84 16 98 05/10/23 04:30 67 16 97 05/10/23 04:15 86 16 99 05/10/23 04:06 152/99 H 05/10/23 04:06 82 22 98 05/10/23 03:45 66 21 95 05/10/23 03:30 88 20 97 05/10/23 03:15 71 22 96 05/10/23 03:00 82 22 05/10/23 03:00 166/120 H 05/10/23 02:45 78 16 96 05/10/23 02:30 67 16 97 05/10/23 02:15 76 12 100 05/10/23 02:09 80 20 152/96 H 98 Room Air 05/10/23 02:00 77 18 100 05/10/23 02:00 152/96 H 05/10/23 01:57 164/103 H 05/10/23 01:57 85 14 99 05/10/23 01:52 96 H 05/10/23 00:45 92 H 18 95 05/10/23 00:30 83 17 98 05/10/23 00:15 68 17 95 05/10/23 00:03 159/98 H 05/10/23 00:03 79 16 97 05/10/23 00:00 96 05/10/23 00:00 77 18 159/98 H 98 Room Air 05/09/23 23:45 78 16 98 05/09/23 23:36 76 16 99 05/09/23 23:36 151/100 H 05/09/23 23:36 76 16 151/100 H 99 Room Air 05/09/23 23:30 76 15 99 05/09/23 22:45 131/87 05/09/23 22:45 80 14 99 05/09/23 22:30 85 15 137/86 98 05/09/23 22:18 89 15 142/93 H 100 Room Air 05/09/23 22:15 92 H 22 05/09/23 22:03 97 H 17 142/88 H 97 05/09/23 21:45 90 18 (2) Hypertension Hypertension type: unspecified Qualified Code(s): I10 - Essential (primary) hypertension
--- NOTE | 2023-05-10 11:27 | Pharmacy Report ---
- Date of Service May 10, 2023 - Pharmacy CVA/TIA Medication Review Medications to Prevent Stroke handout has been added to the patients discharge packet. Antiplatelet(s) * Aspirin EC 81mg PO Q AM + Clopidogrel 75mg PO Q AM Cholesterol * High intensity statin: atorvastatin 40 mg daily DVT Prophylaxis * SCD knee Therapeutic Anticoagulation * No history of Afib/Aflutter noted Type 2 Diabetes * Patient does not have T2DM
--- NOTE | 2023-05-10 13:03 | XCELERA ---
[id number]
[2023-05-10 15:34] VITALS: O2SAT 97
[2023-05-10] MEDS ORDERED: STROKE PATIENT DISCHARGE STA (15:37)
--- NOTE | 2023-05-10 15:39 | Discharge Summary ---
Date of Service May 10, 2023 Admission HPI Per Admitting Provider Aidee Blanco is a 57yo female with history of HTN, HLP presenting with episode of aphasia. Patient has been ill for the last week with diarrhea, ,weakness, fatigue, headache and decreased oral intake. This evening around 20:00 she had an episode of expressive aphasia. She was asking her son to turn off the computer and was using inappropriate words. She denies visual changes, focal numbness/tingling, dizziness or weakness. No neck pain or stiffness. She reports that her symptoms are improving but is still having some difficulty with word finding. In the ER she is hypertensive, 15/100, otherwise stable ER Course: Tylenol ASA NSS Admission Exam Per Admitting Provider General: patient resting comfortably, NAD, non-toxic in appearance, AA&O x 4 Skin: warm, dry, intact, no rashes or lesions HEENT: NC/AT, PERRL, EOMI, anicteric sclera, conjunctiva without injection, external ear normal to inspection and nontender, nares patent, moist mucus membranes, dentition intact, no oropharyngeal lesions, neck supple, trachea midline, no LAD, no thyromegaly, no JVD Heart: +S1/S2, regular, no m/r/g Lungs: equal air entry bilaterally, no rales/rhonchi/wheezes Abd: +BS, soft, NT/ND, no masses/organomegaly/ascites Ext: warm, 2+ pulses in UE/LE bilaterally, no clubbing/cyanosis or edema Neuro: nonfocal, patient AA&O x 4, speech slow with some word-finding difficulty and improper word use (dymptoms instead of symptoms), no facial droop, moving all extremities on command with equal strength 5/5 Principal Diagnosis TIA HTN emergency Discharge Exam Constitutional WD/WN, vitals as above Respiratory normal respiratory effort, lungs clear to auscultation Cardiovascular RRR, no murmur, no edema Gastrointestinal (Abdomen) normal bowel sounds, soft, nontender, no hepatosplenomegaly Skin Versicles with small fluid on left flank until middle abdomen. No crusted Neurologic patellar DTR's 2+ bilat, sensation intact and PERRL, EOMI, accommodation nl, no face palsy, no dysarthria CN's II-XI intact bilaterally and moves all extremities Discharge Data Allergies Allergy/AdvReac Type Severity Reaction Status Date / Time aspirin AdvReac Mild Nausea Verified 05/09/23 22:15 Consultations 05/09/23 22:52 ED Decision to Admit Stat Ordered Studies 05/09/23 21:46 CT angio head w con Stat CT angio neck with con Stat CT head/brain wo con Stat 05/10/23 00:17 MR brain wo/w con Routine Labs 05/09/23 05/09/23 05/09/23 21:43 21:50 22:22 WBC 8.39 RBC 5.37 Hgb 15.4 Hct 45.8 MCV 85.3 MCH 28.7 MCHC 33.6 RDW Std Deviation 38.1 RDW Coeff of Keith 12.3 Plt Count 342 MPV 9.8 Immature Gran % (Auto) 0.4 Neut % (Auto) 77.4 Lymph % (Auto) 12.8 Newberry % (Auto) 7.6 Eos % (Auto) 1.2 Baso % (Auto) 0.6 Neut # (Auto) 6.50 Lymph # (Auto) 1.07 L Newberry # (Auto) 0.64 H Eos # (Auto) 0.10 Baso # (Auto) 0.05 Immature Gran # (Auto) 0.03 PT 10.2 INR 0.9 APTT 23 PTT Ratio 0.8 Sodium 136 Potassium 3.3 L Chloride 100 Carbon Dioxide 25 Anion Gap 11 BUN 17 Creatinine 0.86 Est Cr Clr Drug Dosing 74.9 Est GFR ( Amer) 86.9 Est GFR (Non-Af Amer) 75.0 BUN/Creatinine Ratio 19.8 Glucose 109 H POC Glucose 106 H Estimat Average Glucose Hemoglobin A1c Calcium 9.2 Magnesium 2.2 Total Bilirubin 0.6 AST 14 ALT 8 Alkaline Phosphatase 120 H Troponin I High Sens < 2.3 Total Protein 7.8 Albumin 4.5 Globulin 3.3 Albumin/Globulin Ratio 1.4 Triglycerides Cholesterol LDL Cholesterol, Calc VLDL Cholesterol, Calc HDL Cholesterol Cholesterol/HDL Ratio Adenovirus (PCR) Not Detected B. pertussis DNA (PCR) Not Detected B.parapertussis DNA PCR Not Detected C. pneumoniae DNA (PCR) Not Detected Coronavirus OC43 (PCR) Not Detected Coronavirus HKU1 (PCR) Not Detected Coronavirus 229E (PCR) Not Detected SARS-CoV-2 (PCR) Not Detected Coronavirus NL63 (PCR) Not Detected Human Metapneumovir PCR Not Detected Influenza Type A (PCR) Not Detected Influenza Type B (PCR) Not Detected M. pneumoniae (PCR) Not Detected Parainfluenza 1 (PCR) Not Detected Parainfluenza 2 (PCR) Not Detected Parainfluenza 3 (PCR) Not Detected Parainfluenza 4 (PCR) Not Detected RSV (PCR) Not Detected Entero/Rhino (PCR) DETECTED A* 05/10/23 04:07 WBC 8.53 RBC 4.67 Hgb 13.4 Hct 39.7 MCV 85.0 MCH 28.7 MCHC 33.8 RDW Std Deviation 37.6 RDW Coeff of Keith 12.3 Plt Count 326 MPV 10.4 Immature Gran % (Auto) 0.5 Neut % (Auto) 78.4 Lymph % (Auto) 13.6 Newberry % (Auto) 6.9 Eos % (Auto) 0.2 Baso % (Auto) 0.4 Neut # (Auto) 6.69 H Lymph # (Auto) 1.16 L Newberry # (Auto) 0.59 Eos # (Auto) 0.02 Baso # (Auto) 0.03 Immature Gran # (Auto) 0.04 PT INR APTT PTT Ratio Sodium 136 Potassium 3.5 Chloride 103 Carbon Dioxide 26 Anion Gap 7 BUN 11 Creatinine 0.73 Est Cr Clr Drug Dosing 79.3 Est GFR ( Amer) 106.0 Est GFR (Non-Af Amer) 91.4 BUN/Creatinine Ratio 15.1 Glucose 110 H POC Glucose Estimat Average Glucose 103 Hemoglobin A1c 5.2 Calcium 8.4 L Magnesium Total Bilirubin AST ALT Alkaline Phosphatase Troponin I High Sens Total Protein Albumin Globulin Albumin/Globulin Ratio Triglycerides 73 Cholesterol 180 LDL Cholesterol, Calc 104 VLDL Cholesterol, Calc 15 HDL Cholesterol 61 Cholesterol/HDL Ratio 3.0 Adenovirus (PCR) B. pertussis DNA (PCR) B.parapertussis DNA PCR C. pneumoniae DNA (PCR) Coronavirus OC43 (PCR) Coronavirus HKU1 (PCR) Coronavirus 229E (PCR) SARS-CoV-2 (PCR) Coronavirus NL63 (PCR) Human Metapneumovir PCR Influenza Type A (PCR) Influenza Type B (PCR) M. pneumoniae (PCR) Parainfluenza 1 (PCR) Parainfluenza 2 (PCR) Parainfluenza 3 (PCR) Parainfluenza 4 (PCR) RSV (PCR) Entero/Rhino (PCR) Head CT 05/09/23 21:46 CR Exam(s): CT HEAD Without Contrast EXAM: CT Head Without Intravenous Contrast CLINICAL HISTORY: Reason for exam: neuro deficit, acute stroke suspected. TECHNIQUE: Axial computed tomography images of the head/brain without intravenous contrast. CTDI is 46.52 mGy and DLP is 677.48 mGy-cm. Automated exposure control was utilized for the study. A dose lowering technique was utilized adhering to the principles of ALARA. Mild motion artifact. COMPARISON: None. FINDINGS: Brain: No mass effect or acute infarct. No acute hemorrhage. Mild atrophy and chronic white matter disease. No other abnormal density in the brain parenchyma. Ventricles: No hydrocephalus or midline shift. Bones/joints: No acute bony lesion. Soft tissues: No scalp hematoma. Sinuses: Clear. Mastoid air cells: No mastoid effusion. IMPRESSION: 1. Mild age-related findings. 2. No acute infarct, bleed, or acute intracranial abnormality. Communications: Call Doctor Stroke Electronically signed by: Sivan Beck M.D. 05/09/23 22:34 PM Head CTA 05/09/23 21:46 CR Exam(s): CTA HEAD With Contrast IV Amt: 118 ml optiray 320 EXAM: CT Angiography Head With Intravenous Contrast CLINICAL HISTORY: Reason for exam: neuro deficit, acute stroke suspected. TECHNIQUE: Axial computed tomographic angiography images of the head with intravenous contrast. CTDI is 72.87 mGy and DLP is 1114.86 mGy-cm. Automated exposure control was utilized for the study. A dose lowering technique was utilized adhering to the principles of ALARA. 118 ML Optiray 320 given IV. MIP reconstructed images were created and reviewed. Moderate venous enhancement and mild motion artifact, limits detail. CONTRAST: Patient received 118 ml optiray 320 of IV contrast COMPARISON: None. FINDINGS: Right internal carotid artery: Patent. Right anterior cerebral artery: Patent. Right middle cerebral artery: Patent. Right posterior cerebral artery: Patent. Right vertebral artery: Patent. Left internal carotid artery: Patent. Left anterior cerebral artery: Patent. Left middle cerebral artery: Patent. Left posterior cerebral artery: Patent. Left vertebral artery: Patent. Basilar artery: Patent. Ectatic. Other: Mild atherosclerosis bilateral cavernous ICA, without significant stenosis. IMPRESSION: 1. No aneurysm or large vessel occlusion. Communications: Call Doctor Stroke Electronically signed by: Sivan Beck M.D. 05/09/23 22:34 PM Neck CTA 05/09/23 21:46 CR Exam(s): CTA NECK With Contrast IV Amt: 118 ml optiray 320 EXAM: CT Angiography Neck With Intravenous Contrast CLINICAL HISTORY: Reason for exam: neuro deficit, acute stroke suspected. TECHNIQUE: Routine carotid CT angiography protocol was performed with intravenous contrast. NASCET criteria using the distal ICAs for comparison were used for evaluation of stenoses. CTDI is 72.87 mGy and DLP is 1114.86 mGy-cm. Automated exposure control was utilized for the study. A dose lowering technique was utilized adhering to the principles of ALARA. MIP reconstructed images were created and reviewed. CONTRAST: Patient received 118 ml optiray 320 of IV contrast COMPARISON: None. FINDINGS: Right common carotid artery: Patent. Right internal carotid artery: Patent. Right vertebral artery: Patent. Left common carotid artery: Patent. Left internal carotid artery: Patent. Left vertebral artery: Patent. Codominant. Other: No significant atherosclerosis of the aorta or carotid bifurcations, and no significant stenosis. IMPRESSION: 1. No dissection, occlusion, or significant stenosis. CAROTID STENOSIS REFERENCE USING NASCET CRITERIA: % ICA stenosis = (1 - narrowest ICA diameter/diameter of distal cervical ICA) x 100. Mild - <50% stenosis. Moderate - 50-69% stenosis. Severe - 70-94% stenosis. Near occlusion - 95-99% stenosis. Occluded - 100% stenosis. Communications: Call Doctor Stroke Electronically signed by: Sivan Beck M.D. 05/09/23 22:33 PM Brain MRI 05/10/23 00:17 Exam(s): MRI HEAD W/WO Contrast IV Amt: 7.5cc gadavist EXAM: MR Head Without and With Intravenous Contrast CLINICAL HISTORY: Reason for exam: possible CVA. TECHNIQUE: Magnetic resonance images of the head/brain without and with intravenous contrast in multiple planes. CONTRAST: Patient received 7.5cc gadavist of IV contrast COMPARISON: CT head 05/09/2023. FINDINGS: Brain: Age-appropriate central and peripheral atrophy. Minimal supratentorial periventricular and subcortical white matter hyperintensities on FLAIR and T2-weighted images. No hemorrhage. No acute infarct. Ventricles: No midline shift. No ventriculomegaly. Bones/joints: Unremarkable. No acute fracture. Sinuses: Left maxillary sinus air-fluid level and mucosal thickening.. Mastoid air cells: Unremarkable as visualized. No mastoid effusion. Orbits: Unremarkable as visualized. IMPRESSION: 1. No acute stroke or hemorrhage. 2. Minimal nonspecific white matter changes most commonly seen with small vessel disease. 3. Left maxillary sinus disease. Electronically signed by: Dipak Zhu M.D. 05/10/23 02:13 AM Hospital Course (1) Aphasia: (2) Hypertension: (3) Dyslipidemia: (4) Iron deficiency anemia: Plan 57 yo female PMH: hypertension and hyperlipidemia presenting with acute onset aphasia - word-finding difficulty as well as improper word use. Concern for possible TIA/CVA. Aphasia/TIA -Acute aphasia episode that resolved after an hour -Lipid: cholesterol 180, LDL: 104 -MRI: No acute stroke or hemorrhage. - Head/neck CTA:No aneurysm or large vessel occlusion. -echo: negative bubble study, 65-70%, no regional wall motion abnormalities -Initiate Atorvastatin 40mg po daily and ASA 81mg po daily Hypertension: Amlodipine increase from 5 mg to 10 mg Continue irbersartan 300 mg po daily Entero/Rhinovirus - Positive PCR -Recent illness, sporadic cough Dyslipidemia: Patient not currently on any medication -Initiate Atorvastatin 40mg po daily Iron deficiency anemia: Continue PO iron Total Time Total Time Spent Total Time Spent (In Minutes): <30 Discharge Plan Discharge Items Patient Disposition: Home - Self-Care Reason For Visit: APHASIA, ?TIA/CVA Discharge Diagnosis: TIA Hypertensive Emergency Activity: Resume your previous activity Non-emergency contact: Primary Care Provider Call non-emergency contact if: you have any medication questions, your symptoms worsen, your pain is unusual for you and you have a fever Follow-up/Referrals: Diana Reno CRNP [Primary Care Provider] - Diet: Heart Healthy Addtl Attending Provider Instructions: You were admitted overnight after a incident of weakness and aphasia (difficult to finds word). All image were negative for an ischemic stroke or hemorrhage. Because we cannot rule out Transient ischemic attack completely we will sent you home with: Aspirin 81 mg (baby aspirin), take 1 tab daily Atorvastatin 40 mg, take 1 tab daily We also consider that do your blood pressure being high during admission. We also increase your current dose of Amlodipine from 5 mg to 10 mg daily The rash on your flank area seem like Shingles. This jayshree viral infection that causes a painful rash.We sent Valacyclovir 1,000 mg, take 1 tab three times a day Medications: Your medication list has been reviewed and reconciled upon discharge to ensure accuracy and continuity of care. An updated list of all your medications is included with your hospital discharge paperwork. Please review this list closely, and make note of any changes. Take your medications as instructed; do not skip a dose of your medicines. Make sure all of your doctors know every medicine you are taking (including sxss-gvu-wrpyxhb medicines, vitamins, and supplements). Call your primary care provider before taking any new medicines (including ilyr-uym-[id number] medicines, vitamins, and supplements), because some of these may interact with your current medications, or may make your symptoms worse. Tell your primary care provider if you cannot afford your medications. CONTACT YOUR PRIMARY CARE PROVIDER if you experience any of the following: Difficulty following your treatment plan, or difficulty taking medications CALL 911 OR GO TO THE EMERGENCY DEPARTMENT if you experience any of the following: Sudden, severe abdominal pain or nausea/vomiting Severe chest pain, or chest pain that radiates (moves) to your jaw or arm Sudden, severe shortness of breath or difficulty breathing Thank you for allowing us to participate in your care. Pending Studies at Discharge: No Stand-Alone Forms: My [facility], Smoking Cessation, Medications to Prevent Stroke Medications and DC Order Prescriptions: New atorvastatin 40 mg Tablet 40 mg PO QAM 30 Days Qty: 30 0RF aspirin 81 mg Tablet,Delayed Release (Dr/Ec) 81 mg PO QAM 30 Days Qty: 30 0RF valacyclovir 1 gram tablet 1,000 mg PO TID 7 Days Qty: 21 0RF Continued irbesartan 300 mg tablet 300 mg PO DAILY Qty: 90 3RF polysaccharide iron complex [Ferrex 150] 150 mg iron capsule 300 mg PO DAILY Qty: 180 3RF Rx Instructions: avoid dairy/calcium-containing products and/or antacids for at least 2 hrs before and after dose Changed amlodipine 5 mg tablet 10 mg PO DAILY Qty: 90 3RF Discharge Orders: Discharge Order (Routine); Ordered 05/10/23 Ordered By: Basim Saenz Admission Data Admit Date/Time: 05/09/23 23:40 Attending Provider: Krzysztof Stevens Admit Provider: Aleshia Lau Primary Care Provider: Diana Reno Other Providers: Aleshia Lau Other Interventions: Discharge Summary Assessment (RN) Last Done: 05/10/23 16:09 Supervising Physician Co-Signing Physician Notes I personally examined the patient and verified all porter points of history and exam, discussed case, and agree with decision making with Dr Praneeth Saenz feeling better no further difficulty w word finding vitals noted nad heent nc at mmm breathing unlabored no accessory muscles good effort skin no rashes no pallor or icterus neuro no focal deficits. skin - L sided patches of vesicles on erythematous base stopping at midline ~T10 distribution transient expressive aphasia -HTN mediated more likely than small vessel ischemic TIA - although hard to definitively r/o one from the other (but since essentially moderate risk for vascular disease and zero atherosclerosis noted on large vessel imaging - small vessel still possible but less likely) -increase amlodipine to 10mg, home BP monitoring, close outpt follow up -given hard to totally rule out small vessel ischemia - 81mg asa for now, atorvastatin (but follow over time - if it continues to be more and more clear that she does not harbor vascular disease then could eventually dc these over time) shingles -present ~2-3 days, surprisingly asymptomatic -- given this, no treatment may be needed. discussed with pt risk/benefit of valtrex - usually well tolerated and hastens resolution, but can sometimes cause nausea and given that she's already ~2-3 days in without symptoms may be unnecessary; while at the same time if treatment was to be initiated earlier treatment usually has more of an impact --> with this somewhat nebulous balance suggested starting valtrex if shingles does in fact become symptomatic over the next day or so, but not starting it otherwise safe/stable for home, otherwise as above Resident Activity Tracking Resident Involvement: Resident Care Provided Care Provided: Adult Hospital Medicine
[2023-05-10 16:09] VITALS: RESP 18
[2023-05-10 16:11] VITALS: BP 149/109; PULSE 80
--- NOTE | 2023-05-10 16:55 | Billing Data ---
Date of Service May 10, 2023 Coding Level of Care Code 13236 IN/OBS DISCH 30 MIN/LESS
--- NOTE | 2023-05-11 10:38 | Pharmacy Report ---
Pharmacist Stroke Counseling - Date of Service May 11, 2023 - Scope: Pharmacy has been consulted to provide medication discharge counseling for this patient admitted with transient ischemic attack as per the Pharmacist Discharge Counseling for Stroke Patients Protocol. - Medications on Discharge: New Rx's Medication Instructions Recorded irbesartan 300 mg tablet 300 mg PO DAILY #90 tabs 08/02/22 polysaccharide iron complex 150 mg 300 mg (2 x 150 mg iron) PO DAILY 08/05/22 iron capsule (Ferrex) #180 caps amlodipine 5 mg tablet 10 mg (2 x 5 mg) PO DAILY #90 tabs 05/10/23 aspirin 81 mg tablet,delayed 81 mg PO QAM 30 days #30 tabs 05/10/23 release atorvastatin 40 mg tablet 40 mg PO QAM 30 days #30 tabs 05/10/23 valacyclovir 1 gram tablet 1,000 mg PO TID 7 days #21 tabs 05/10/23 - Action: The above medications, specifically ones for stroke treatment/prophylaxis, have been reviewed in detail with the patient via phone call today. This includes indication, common adverse reactions, drug interactions, and medication administration. Medication counseling has been employed using the teach-back method to ensure understanding. - Outcome: The patient demonstrated understanding of the medications. Additional comments: Spoke over the phone with patient today- she was very pleasant and receptive to counseling. Reviewed new medications to prevent stroke including Aspirin and Atorvastatin and increase in Amlodipine dose from 5 to 10 mg for high BP. Discussed why they are being used and common side effects in great detail. Reviewed how to use the medications, what to do if doses are missed, common drug interactions, common side effects, what to watch out for while using the medications. Pt verbalized understanding and restated the porter points of each medication. Thank you for allowing pharmacy to be involved in the care of this patient. Please call [phone] with any additional questions
--- NOTE | 2023-05-11 13:00 | Electrocardiogram Report ---
Test Reason : Blood Pressure : / mmHG Vent. Rate : 093 BPM Atrial Rate : 093 BPM P-R Int : 170 ms QRS Dur : 070 ms QT Int : 336 ms P-R-T Axes : 029 -01 013 degrees QTc Int : 417 ms Normal sinus rhythm Anteroseptal infarct (cited on or before 09-MAY-2023) Abnormal ECG When compared with ECG of 30-DEC-1995 13:12, Questionable change in initial forces of Anterior leads Confirmed by Fredy Wilburn ([id number]) on 05/11/2023 1:00:01 PM Referred By: REFERRED SELF Confirmed By:Fredy Wilburn
== END 2023-05-10 16:09 | disposition home or self-care (01) ==
LOC: EDINP 21:19 → ED 21:19 → SUATTDRO 23:40 → EDINP 23:59
DX: D50.9 Iron deficiency anemia, unspecified; Z88.6 Allergy status to analgesic agent; G45.9 Transient cerebral ischemic attack, unspecified; Z79.899 Other long term (current) drug therapy; I16.1 Hypertensive emergency; E78.5 Hyperlipidemia, unspecified; B34.8 Other viral infections of unspecified site; Z87.891 Personal history of nicotine dependence